=== PATIENT | male | born 1940 | race Caucasian/White ===

== ENCOUNTER 2017-03-25 20:02 | Emergency (ER) | payer MEDICARE, OTHER ==
[~2017-03-25] VITALS: Ht 172.7 cm; Wt 65.9 kg
[2017-03-25 20:04] VITALS: BP 122/77; PULSE 56; RESP 17; O2SAT 99
--- NOTE | 2017-03-25 21:29 | ED.REPORT ---
HPI-General Illness Date of Service March 25, 2017 ED Provider: Juan Pulliam Patient is a 76 year old male who is visiting from out of town who presents to the ED complaining of a worsening cough with yellow-green sputum onset a few days ago. Associated symptoms include fever and sore throat. He denies abdominal pain, headache, vomiting, or any other symptoms. He has never smoked. His spouse had a mild cold about 2 weeks ago. He takes Flomax and Prilosec. Nursing Notes Stated Complaint: COUGH AND FEVER Chief Complaint: FLU/Cold Symptoms Nursing Notes Reviewed: Yes Allergies: Coded Allergies: No Known Allergies (Unverified , 03/25/17) General Time Seen by MD: 22:00 Chief Complaint Cough Hx Obtained From: Patient, Spouse Arrived By: Walk-in Sudden in Onset?: Yes Onset Occurred: 3 days ago Symptom Duration: Since onset Past Medical History Past Medical History Enlarged prostate Reports: GERD Past Surgical History Unknown Smoking History Never Smoker Social History Other Social History: , From out of town Ambulatory Status Independent Review of Systems Full Review of Systems Constitutional: Reports: Fever Ears / Nose / Throat: Reports: Sore throat Respiratory: Reports: Prod cough, green, Prod cough, yellow GI: Denies: Abdominal pain, Vomiting Neurologic: Denies: Headache Complete sys rev & neg: except as marked. Physical Exam Vital Signs Vital Signs Date Time Temp Pulse Resp B/P Pulse Ox O2 Delivery O2 Flow Rate FiO2 03/25/17 23:15 60 20 129/71 97 Room Air 03/25/17 22:31 54 18 96 Room Air 03/25/17 20:04 36.3 56 17 122/77 99 Room Air Initial VS: Reviewed General/Constitutional: Well-developed, Well-nourished Head / Eyes: Atraumatic, Normocephalic ENT: Mucous membranes moist Skin: Warm, Dry Neurologic: Alert, Oriented, Nonfocal Psychiatric: Mood/affect normal, Behavior normal, Normal thought content Neck: Supple, Full range of motion, No adenopathy Respiratory / Chest: Breath sounds NL, No respiratory distress rhonchus cough Lower Extremity / Pelvis / MS: No edema Interpretation & Diagnostics Lab Results Interpretation Result Diagram: 03/25/17 2223 03/25/17 2223 Test 03/25/17 22:23 03/25/17 23:23 White Blood Count 7.0th/mm3 (3.8-10.1) Red Blood Count 4.25mil/mm3 (4.40-5.80) Hemoglobin 13.4g/dL (13.8-17.2) Hematocrit 39.3% (41.0-50.0) Mean Corpuscular Volume 92.5fL (81-100) Mean Corpuscular Hemoglobin 31.5pg (27.0-35.0) Mean Corpuscular Hemoglobin Concent 34.1% (32.0-37.0) Red Cell Distribution Width 12.7% (12.3-15.4) Platelet Count 216bil/L (150-400) Neutrophils (%) (Auto) 46.9% (40-74) Lymphocytes (%) (Auto) 42.8% (14-46) Monocytes (%) (Auto) 9.1% (4-12) Eosinophils (%) (Auto) 0.7% (0-5) Basophils (%) (Auto) 0.4% (0-3) Sodium Level 135mEq/L (134-144) Potassium Level 4.2mEq/L (3.5-5.2) Chloride Level 98mEq/L (97-108) Carbon Dioxide Level 22mmol/L (18-29) Blood Urea Nitrogen 22mg/dL (8-27) Creatinine 0.78mg/dL (0.76-1.27) Estimat Glomerular Filtration Rate 103mL/min (>59) Glucose Level 120mg/dL (60-99) Calcium Level 9.3mg/dL (8.5-10.1) Magnesium Level 2.2mg/dL (1.6-2.6) Total Bilirubin 0.4mg/dL (0.0-1.2) Aspartate Amino Transf (AST/SGOT) 25U/L (0-50) Alanine Aminotransferase (ALT/SGPT) 18U/L (0-44) Alkaline Phosphatase 106U/L (25-160) Pro-B-Type Natriuretic Peptide 64.28pg/mL (0-486) Total Protein 7.0g/dL (6.4-8.4) Albumin 3.7g/dL (3.4-5.0) Procalcitonin 0.09ng/mL (0.00-0.08) Hold Hodge Top Tube Received (Received) Lab Results Interpretation: Flu neg X-Ray Chest Interpretation Chest Xray Interpretation: Negative View: AP & lat Interpretation / Wet Read by: Interpret - ED physician Re-Eval/Medical Decision Med Decision/Clinical Course 76-year-old with no COPD history, presents with about a week of cough, now producing some yellowish sputum. He has a negative x-ray, fairly benign exam with a rhonchorous Central cough, and no other concerning findings for pneumonitis or other bacterial cause. Antibiotics unlikely helpful. He did not get much relief from the DuoNeb given here, and was offered albuterol, but left before it could arrive from pharmacy. Time of Eval: 23:11 Patient Status: Condition improved Re-Evaluation/Progress Note: Rechecked pt. Discussed plan for discharge. Patient understands and agrees with plan. All questions addressed at this time. Counseled Regarding: Diagnosis, Lab results, Need for follow-up, When/why to return to ED Discharge & Departure Shift Change Sign-Out Response to Therapy: Unchanged Primary Impression: Bronchitis Disposition: Home Discharge Condition All VS Reviewed: Yes Condition: Improved Additional Instructions: There is no evidence of pneumonia on your x-ray. Your blood count is reassuring and normal. There is very little likelihood that antibiotics will change the course of this disease, other than providing side effects. Stay well-hydrated. Follow up with your doctor when you get home. Return here for were reviewed and happen to be for urgent medical care if you are not improving. Referrals: NOPCP (PCP) Scribe Attestation Portions of this note were transcribed by Lenora Verdugo. I, Dr. Pulliam personally performed the history, physical exam and medical decision-making; I reviewed and confirmed the accuracy of the information in the transcribed note. Signed by: Lenora Verdugo 03/25/17, 2311 Cecil Pulliam MD March 25, 2017 21:29 LENORA VERDUGO March 25, 2017 22:07
[2017-03-25] MEDS ORDERED: Albuterol-Ipratropium 3 mL Inhalation Solution NEB ONE (22:05)
[2017-03-25 22:31] VITALS: PULSE 54; RESP 18; O2SAT 96
[2017-03-25 22:35] LABS: BASOPHILS % (AUTO) 0.4 % (0-3); EOSINOPHILS % (AUTO) 0.7 % (0-5); MONOCYTES % (AUTO) 9.1 % (4-12); Mean Corpuscular Hemoglobin 31.5 pg (27.0-35.0); Mean Corpuscular Volume 92.5 fL (81-100); NEUTROPHILS % (AUTO) 46.9 % (40-74); Platelet Count 216 bil/L (150-400)
[2017-03-25 23:15] VITALS: BP 129/71; PULSE 60; RESP 20; O2SAT 97
[2017-03-25] MEDS ORDERED: _Proair 200 Puff/8.5 GM Inhaler INHALATION PRN (23:15)
[2017-03-25 23:30] LABS: Magnesium 2.2 mg/dL (1.6-2.6)
--- NOTE | 2017-03-26 09:54 | DRSVH ---
PROCEDURE: X-RAY CHEST, TWO VIEWS ([id number]) INDICATIONS: cough, sputum TECHNIQUE: 2 views of the chest were acquired. COMPARISON: None. FINDINGS: Surgical changes and devices: None. Lungs and pleura: No pleural effusions or pneumothorax. There is a small indistinct peripheral nodu lar opacity in the left midlung measuring approximately 9 mm. Mediastinum: Mediastinal contours are normal. Heart size is normal. Bones and chest wall: No suspicious bony abnormalities. Soft tissues appear unremarkable. IMPRESSION: 1. No acute consolidation. 2. Small peripheral nodular opacity in the left midlung may represent confluent vascular and bony st ructures versus a pulmonary nodule. Recommend a short-term followup repeat study for further evaluat ion. Findings discussed with Dr. Barnes on 03/26/17 at 9:45 AM. Dictated by: Luis Felipe Rudolph M.D. on 03/26/2017 at 9:42 Approved by: Luis Felipe Rudolph M.D. on 03/26/2017 at 9:47
== END 2017-03-25 23:38 | disposition home or self-care (01) ==
LOC: SED 20:02
DX: J40 Bronchitis, not specified as acute or chronic (principal); R91.1 Solitary pulmonary nodule; J02.9 Acute pharyngitis, unspecified; K21.9 Gastro-esophageal reflux disease without esophagitis
CPT/HCPCS: 36415; 71020; 80053; 83735; 83880; 84145; 85025; 87040; 87070; 87205; 87804; 94664; 99284; J7620